=== PATIENT | female | born 1980 | race Caucasian/White ===

== ENCOUNTER 2019-10-13 08:56 | Outpatient (CLI) | payer OTHER, SELFPAY ==
--- NOTE | ~2019-10-13 | US_ITS ---
EXAMINATION: US right upper quadrant DATE: 10/13/2019 09:35 INDICATION: Hepatitis C. TECHNIQUE: Multiple grayscale and Doppler ultrasound images of the abdomen were obtained. COMPARISON: None FINDINGS: The visualized portions of the head, body, and tail of the pancreas are normal. The liver i s normal without focal lesion. No liver surface nodularity. There is normal flow in main portal vein. The gallbladder is normal in size and contains a 2 mm polyp, likely a benign cholesterol polyp that needs no follow-up. No gallstones or gallbladder wall thickening. There was no sonographic Valentin sig n. The common duct is normal and measures 4 mm. IMPRESSION: 1. Normal liver. Reviewed, dictated and finalized at location A. IMPRESSION: 1. Normal liver.
[2019-10-13 09:23] LABS: Basophils Absolute Auto 0.04 K/mm3 (0.00-0.10); Basophils Percent Auto 0.5 % (0.0-1.0); Eosinophils Absolute Auto 0.18 K/mm3 (0.02-0.50); Eosinophils Percent Auto 2.2 % (1.0-6.0); Hematocrit 44.4 % (35.0-49.0); Hemoglobin 14.7 g/dL (12.0-15.0); Immature Granulocyte Absolute 0.02 K/mm3 (0.00-0.00); Immature Granulocyte Percent A 0.2 % (0.0-0.0); Lymphocytes Absolute Auto 2.94 K/mm3 (1.10-4.50); Lymphocytes Percent Auto 36.7 % (18.0-42.0); Mean Corpuscular HGB Conc 33.1 g/dL (32.0-36.0); Mean Corpuscular Hemoglobin 29.2 pg (27.0-31.0); Mean Corpuscular Volume 88.1 fL (78.0-102.0); Mean Platelet Volume 9.8 fl (9.2-11.8); Monocytes Percent Auto 6.2 % (2.0-11.0); Neutrophils Absolute Auto 4.3 K/mm3 (1.7-7.2); Neutrophils Percent Auto 54.2 % (50.0-70.0); Platelet Count Result 307 K/mm3 (150-420); Red Blood Count 5.04 M/mm3 (4.20-5.40); Red Cell Distribution Width 15.9 % (11.6-14.4)
[2019-10-13 09:41] LABS: INR 0.9; Partial Thromboplastin Time 28.4 SEC (22.3-31.6); Prothrombin Time 9.7 Seconds (9.64-11.0)
[2019-10-13 11:51] LABS: Alanine Aminotransferase 190 U/L (14-59); Albumin Level 3.6 g/dL (3.4-5.0); Alkaline Phosphatase 68 U/L (46-116); Anion Gap 16.2 mmol/L (7-16); Aspartate Amino Transferase 74 U/L (15-37); Bilirubin,Total 0.5 mg/dL (0.00-1.00); Blood Urea Nitrogen 15 mg/dL (7-18); Calcium 8.7 mg/dL (8.5-10.1); Carbon Dioxide 23 mmol/L (21-32); Chloride 106 mmol/L (98-108); Estimated Glomerular Filt Rate > 60; Ferritin 67 ng/mL (8-252); Glucose 81 mg/dL (70-99); Iron 96 ug/dL (50-170); Osmolality Calculated 291 mOsm/kg (285-295); Percent Iron Saturation 26 % (12-57); Potassium 4.2 mmol/L (3.5-5.1); Sodium 141 mmol/L (136-145); Thyroid Stimulating Hormone 0.78 uIU/mL (0.36-3.74); Total Protein 6.7 g/dL (6.4-8.2)
[2019-10-13 12:46] LABS: HIV 1 P24 AG Negative (Negative); HIV 1/2 AB Negative (Negative)
[2019-10-15 22:12] LABS: Alpha-1-Antitrypsin, QN 121 mg/dL (83-199); Ceruloplasmin 37 mg/dL (18-53)
[2019-10-16 15:46] LABS: Amphetamines NEGATIVE ng/mL (<500); Barbiturates NEGATIVE ng/mL (<300); Benzodiazepines NEGATIVE ng/mL (<100); Cocaine Metabolite NEGATIVE ng/mL (<150); Marijuana Metabolite 52 ng/mL (<5); Marijuana Metabolite POSITIVE ng/mL (<20); Methadone Metabolite NEGATIVE ng/mL (<100); Opiates NEGATIVE ng/mL (<100); Oxidant NEGATIVE mcg/mL (<200); pH 7.6 (4.5-9.0)
[2019-10-16 19:28] LABS: Hepatitis A Antibody Total Nonreactive (Nonreactive)
[2019-10-16 19:51] LABS: Hepatitis B Surface Antibody Nonreactive (Nonreactive); Hepatitis B Surface Antigen Nonreactive (Nonreactive)
[2019-10-20 08:17] LABS: Fibrosis Score 0.06; Fibrosis Stage F0
[2019-10-20 08:19] LABS: Necroinflammat Act Grade A2-A3
[2019-10-20 08:20] LABS: Alpha-2-Macroglobulin 163; Haptoglobin 287; Total Bilirubin 0.5
[2019-10-20 08:21] LABS: ALT 140; Apolipoprotein A1 146; GGT 38
[2019-10-21 14:38] LABS: Alpha Fetoprotein Tumor Marker 3.5 ng/mL (<6.1)
== END 2019-10-13 08:57 | disposition home or self-care (01) ==
PROVIDERS: PCP Family Medicine; Visit Provider Internal Medicine Infectious Disease
DX: R76.8 Other specified abnormal immunological findings in serum (principal)
CPT/HCPCS: 36415; 76705; 80053; 80299; 81596; 82103; 82105; 82390; 82595; 82728; 83540; 83550; 84443; 85025; 85610; 85730; 86038; 86703; 86706; 86708; 87522; 87902